=== PATIENT | female | born 1990 | race Caucasian/White ===

== ENCOUNTER 2017-10-18 10:31 | Emergency (ER) | payer SELFPAY ==
[2017-10-18] MEDS ORDERED: ACETAMINOPHEN 325 MG TABLET PO ONE (11:30)
--- NOTE | 2017-10-18 11:31 | ER Document Report ---
ED GI/ - General Chief Complaint: Abdominal Cramping Stated Complaint: ABDOMINAL PAIN Time Seen by Provider: 10/18/17 11:29 Mode of Arrival: Ambulatory Information source: Patient Notes: Patient presents complaining of right lower pelvic pain that started 4 days ago. Patient denies any fever, nausea, vomiting or diarrhea. Patient denies any vaginal bleeding or discharge. Patient denies any urinary symptoms. TRAVEL OUTSIDE OF THE [place] IN LAST 30 DAYS: No - HPI Patient complains to provider of: Pelvic pain Onset: Other - 4 days Timing/Duration: Persistent Quality of pain: Achy Pain Level: 4 Location: Suprapubic, Pelvis - Right lower pelvic Vaginal bleeding (Compared to normal period): None Sexual history: Active Associated symptoms: denies: Diarrhea, Dysuria, Fever, Nausea, Urinary hesitancy , Urinary frequency, Urinary retention, Urinary urgency, Vaginal discharge, Vomiting Exacerbated by: Denies Relieved by: Denies Similar symptoms previously: No Recently seen / treated by doctor: No - Related Data Allergies/Adverse Reactions: iron Allergy (Verified 10/18/17 10:33) swelling Past Medical History - General Information source: Patient - Social History Smoking Status: Never Smoker Chew tobacco use (# tins/day): No Frequency of alcohol use: None Drug Abuse: None Occupation: [employer] Lives with: Family Family History: Reviewed & Not Pertinent Patient has suicidal ideation: No Patient has homicidal ideation: No - Medical History Medical History: Negative Renal/ Medical History: Denies: Hx Peritoneal Dialysis Past Surgical History: Reports: Hx Tubal Ligation Review of Systems - Review of Systems Constitutional: No symptoms reported. denies: Fever, Recent illness EENT: No symptoms reported Cardiovascular: No symptoms reported. denies: Chest pain Respiratory: No symptoms reported. denies: Cough, Short of breath Gastrointestinal: Abdominal pain. denies: Diarrhea, Nausea, Vomiting Genitourinary: No symptoms reported. denies: Dysuria, Flank pain Female Genitourinary: No symptoms reported. denies: , Vaginal discharge , Vaginal bleeding Musculoskeletal: No symptoms reported. denies: Back pain Skin: No symptoms reported Hematologic/Lymphatic: No symptoms reported Neurological/Psychological: No symptoms reported Physical Exam - Vital signs Vitals: Temp Pulse Resp BP Pulse Ox 98.6 F 70 18 104/69 98 10/18/17 10:45 10/18/17 10:45 10/18/17 10:45 10/18/17 10:45 10/18/17 10:45 - General General appearance: Appears well, Alert In distress: None - Respiratory Respiratory status: No respiratory distress Chest status: Nontender Breath sounds: Normal. No: Rales, Rhonchi, Stridor, Wheezing Chest palpation: Normal - Cardiovascular Rhythm: Regular Heart sounds: S1 appreciated, S2 appreciated Murmur: No - Abdominal Inspection: Normal Distension: No distension Tenderness: Tender - R lower pelvic Organomegaly: No organomegaly - Back Back: Normal, Nontender. No: CVA tenderness - Extremities General upper extremity: Normal inspection, Normal strength General lower extremity: Normal inspection, Normal strength - Neurological Neuro grossly intact: Yes Cognition: Normal [place] Coma Scale Eye Opening: Spontaneous [place] Coma Scale Verbal: Oriented [place] Coma Scale Motor: Obeys Commands [place] Coma Scale Total: 15 - Psychological Associated symptoms: Normal affect, Normal mood - Skin Skin Temperature: Warm Skin Moisture: Dry Skin Color: Normal Course - Re-evaluation Re-evalutation: 10/18/17 13:09 Patient continues with right lower pelvic tenderness. Still awaiting labs drawn at this time. 10/18/17 14:38 Patient continues with right lower quadrant/suprapubic pelvic pain. Patient awaiting CT scan 10/18/17 17:25 Patient with lower pelvic, suprapubic tenderness. No McBurney point tenderness. Patient without any fever or leukocytosis. No concern for appendicitis, TOA or ovarian torsion at this time. Patient given good return precautions at this time. Patient presents with abdominal pain without signs of peritonitis or other life-threatening or serious etiology. Patient appears stable for discharge and has been instructed to return immediately if the symptoms worsen in any way, or in 8-12 hours if not improved for reevaluation. The patient has been instructed to return if the symptoms worsen or change in any way. Consulted with Dr. Wood who agrees with this discharge plan of care. - Vital Signs Vital signs: Temp Pulse Resp BP Pulse Ox 98.0 F 72 18 108/62 98 10/18/17 17:43 10/18/17 17:43 10/18/17 17:43 10/18/17 17:43 10/18/17 17:43 - Laboratory Result Diagrams: 10/18/17 14:10 02/05/18 16:00 Laboratory results interpreted by me: 10/18/17 10/18/17 10/18/17 12:00 14:10 16:00 MCV 73 L MCH 24.6 L RDW 15.8 H Chloride 109 H Glucose 70 L Ur Leukocyte Esterase MODERATE H Labs- Entire Visit 10/18/17 10/18/17 10/18/17 12:00 12:00 12:00 WBC RBC Hgb Hct MCV MCH MCHC RDW Plt Count Seg Neutrophils % Lymphocytes % Monocytes % Eosinophils % Basophils % Absolute Neutrophils Absolute Lymphocytes Absolute Monocytes Absolute Eosinophils Absolute Basophils Sodium Potassium Chloride Carbon Dioxide Anion Gap BUN Creatinine Est GFR ( Amer) Est GFR (Non-Af Amer) Glucose Calcium Total Bilirubin Direct Bilirubin Neonat Total Bilirubin Neonat Direct Bilirubin Neonat Indirect Bili AST ALT Alkaline Phosphatase Total Protein Albumin Urine Color YELLOW Urine Appearance SLIGHTLY-CLOUDY Urine pH 5.0 Ur Specific [place] 1.026 Urine Protein NEGATIVE Urine Glucose (UA) NEGATIVE Urine Ketones NEGATIVE Urine Blood NEGATIVE Urine Nitrite NEGATIVE Urine Bilirubin NEGATIVE Urine Urobilinogen NEGATIVE Ur Leukocyte Esterase MODERATE H Urine WBC (Auto) 10 Urine RBC (Auto) 1 Urine Bacteria (Auto) TRACE Squamous Epi Cells Auto 5 Urine Mucus (Auto) FEW Urine Ascorbic Acid NEGATIVE Urine HCG, Qual NEGATIVE Chlamydia DNA (PCR) NOT DETECTED N.gonorrhoeae DNA (PCR) NOT DETECTED 10/18/17 10/18/17 10/18/17 14:10 14:10 16:00 WBC 8.4 RBC 4.98 Hgb 12.3 Hct 36.2 MCV 73 L MCH 24.6 L MCHC 33.8 RDW 15.8 H Plt Count 334 Seg Neutrophils % 69.1 Lymphocytes % 22.1 Monocytes % 6.7 Eosinophils % 1.4 Basophils % 0.7 Absolute Neutrophils 5.8 Absolute Lymphocytes 1.9 Absolute Monocytes 0.6 Absolute Eosinophils 0.1 Absolute Basophils 0.1 Sodium Cancelled 139.8 Potassium Cancelled 4.2 Chloride Cancelled 109 H Carbon Dioxide Cancelled 24 Anion Gap Cancelled 7 BUN Cancelled 17 Creatinine Cancelled 0.63 Est GFR ( Amer) Cancelled > 60 Est GFR (Non-Af Amer) Cancelled > 60 Glucose Cancelled 70 L Calcium Cancelled 9.1 Total Bilirubin Cancelled 0.6 Direct Bilirubin Cancelled 0.4 Neonat Total Bilirubin Cancelled Not Reportable Neonat Direct Bilirubin Cancelled Not Reportable Neonat Indirect Bili Cancelled Not Reportable AST Cancelled 16 ALT Cancelled 24 Alkaline Phosphatase Cancelled 42 Total Protein Cancelled 6.5 Albumin Cancelled 3.8 Urine Color Urine Appearance Urine pH Ur Specific [place] Urine Protein Urine Glucose (UA) Urine Ketones Urine Blood Urine Nitrite Urine Bilirubin Urine Urobilinogen Ur Leukocyte Esterase Urine WBC (Auto) Urine RBC (Auto) Urine Bacteria (Auto) Squamous Epi Cells Auto Urine Mucus (Auto) Urine Ascorbic Acid Urine HCG, Qual Chlamydia DNA (PCR) N.gonorrhoeae DNA (PCR) - Diagnostic Test Radiology reviewed: Reports reviewed Discharge - Discharge Clinical Impression: Abdominal pain Qualifiers: Abdominal location: right lower quadrant Qualified Code(s): R10.31 - Right lower quadrant pain UTI (urinary tract infection) Qualifiers: Urinary tract infection type: site unspecified Hematuria presence: without hematuria Qualified Code(s): N39.0 - Urinary tract infection, site not specified Condition: Stable Disposition: HOME, SELF-CARE Instructions: Abdominal Pain ([facility]), Observation for Appendicitis ([facility]), Urinary Tract Infection ([facility]) Additional Instructions: Return immediately for any new or worsening symptoms Followup with your primary care provider, call tomorrow to make a followup appointment Return tomorrow for repeat abdominal examination if your pain is not improved. Prescriptions: Cephalexin Monohydrate [Keflex 500 mg Capsule] 500 mg PO Q6H 5 Days capsule Ibuprofen [Motrin 600 Mg Tablet] 600 mg PO Q6H PRN #20 tablet PRN Reason: for pain Forms: Return to Work Referrals: [facility] [Provider Group] - Follow up as needed [facility] [Provider Group] - Follow up as needed
[2017-10-18 12:40] LABS: APPEARANCE,URINE SLIGHTLY-CLOUDY; BILIRUBIN,URINE NEGATIVE (NEGATIVE); COLOR,URINE YELLOW; GLUCOSE, URINE NEGATIVE (NEGATIVE); KETONES,URINE NEGATIVE (NEGATIVE); LEUKOCYTE ESTERASE,URINE MODERATE (NEGATIVE); NITRITE,URINE NEGATIVE (NEGATIVE); PROTEIN,URINE NEGATIVE (NEGATIVE); URINE SPECIFIC GRAVITY 1.026; UROBILINOGEN,URINE NEGATIVE mg/dL (<2.0)
--- NOTE | 2017-10-18 12:40 | RADIOLOGY REPORT (SQ) ---
EXAM DESCRIPTION: U/S NON OB PEL TV W/DOPPLER COMPLETED DATE/TIME: 10/18/2017 12:25 pm REASON FOR STUDY: RLQ pain COMPARISON: None. TECHNIQUE: Dynamic and static grayscale images acquired of the pelvis via transvaginal approach and recorded on PACS. Additional selected color Doppler and spectral images recorded. LIMITATIONS: None. FINDINGS: UTERUS: Contour normal. No mass. Uterus is 8.4 x 6 x 5 cm in size ENDOMETRIAL STRIPE: No focal or generalized thickening. No masses. Endometrium 14 mm in thickness CERVIX: No nabothian cysts. 2 cm in length, closed. RIGHT OVARY: No abnormal masses. Right ovary 2.8 x 1.6 x 1.6 cm in size RIGHT OVARY DOPPLER: Normal arterial vascular flow without evidence for torsion. LEFT OVARY: No abnormal masses. Left ovary 2.9 x 2.3 x 1.8 cm in size LEFT OVARY DOPPLER: Normal arterial vascular flow without evidence for torsion. FREE FLUID: None noted. OTHER: No other significant finding. IMPRESSION: NORMAL TRANSVAGINAL PELVIC ULTRASOUND. TECHNICAL DOCUMENTATION: JOB ID: [id number]- All Rights Reserved
[2017-10-18 14:29] LABS: ABSOLUTE BASOPHILS # (AUTO) 0.1 10^3/uL (0.0-0.2); ABSOLUTE EOSINOPHILS # (AUTO) 0.1 10^3/uL (0.0-0.6); ABSOLUTE LYMPHOCYTES (AUTO) 1.9 10^3/uL (0.5-4.7); ABSOLUTE MONOCYTES (AUTO) 0.6 10^3/uL (0.1-1.4); ABSOLUTE NEUT (AUTO) 5.8 10^3/uL (1.7-8.2); BASOPHILS % (AUTO) 0.7 % (0-2); EOSINOPHILS % (AUTO) 1.4 % (0-6); HEMATOCRIT 36.2 % (36.0-47.0); HEMOGLOBIN 12.3 g/dL (12.0-15.5); LYMPHOCYTES % (AUTO) 22.1 % (13-45); MEAN CORPUSCULAR HEMOGLOBIN 24.6 pg (27.0-33.4); MEAN CORPUSCULAR HGB CONC 33.8 g/dL (32.0-36.0); MEAN CORPUSCULAR VOLUME 73 fl (80-97); MONOCYTES % (AUTO) 6.7 % (3-13); PLATELET COUNT 334 10^3/uL (150-450); RED BLOOD COUNT 4.98 10^6/uL (3.72-5.28); RED CELL DISTRIBUTION WIDTH 15.8 % (11.5-14.0); SEGMENTED NEUTROPHILS % (AUTO) 69.1 % (42-78); TOTAL CELLS COUNTED % (AUTO) 100 %; WHITE BLOOD COUNT 8.4 10^3/uL (4.0-10.5)
[2017-10-18] MEDS ORDERED: NORMAL SALINE 1000 ML 1,000 ML IV ONE (14:37)
[2017-10-18] MEDS ORDERED: KETOROLAC TROMETHAMINE INJ/PF 30 MG/1 ML SDV IV ONE (14:37)
--- NOTE | 2017-10-18 15:57 | RADIOLOGY REPORT (SQ) ---
EXAM DESCRIPTION: CT ABD/PELVIS WITH IV ONLY COMPLETED DATE/TIME: 10/18/2017 3:38 pm REASON FOR STUDY: RLQ pain HCG negative. COMPARISON: None. TECHNIQUE: CT scan of the abdomen and pelvis performed using helical scanning technique with dynamic intravenous contrast injection. No oral contrast. Images reviewed with lung, soft tissue, and bone windows. Reconstructed coronal and sagittal MPR images reviewed. Delayed images for evaluation of the urinary system also acquired. All images stored on PACS. All CT scanners at this facility use dose modulation, iterative reconstruction, and/or weight based d osing when appropriate to reduce radiation dose to as low as reasonably achievable (ALARA). [facility]: Dose Right [facility]: CareDose [facility]: Dose Right [facility]: Teradose 4D [facility]: LiveWire Tax CONTRAST TYPE AND DOSE: contrast/concentration: Isovue 370.00 mg/ml; Total Contrast Delivered: 90.0 ml; Total Saline Delivered: 70.0 ml 90 mL Isovue 370 intravenously RENAL FUNCTION: Not required for younger patients. RADIATION DOSE: CT Rad equipment meets quality standard of care and radiation dose reduction techniq ues were employed. CTDIvol: 11.0 - 15.0 mGy. DLP: 1376 mGy-cm.. LIMITATIONS: None. FINDINGS: LOWER CHEST: No significant findings. No nodules or infiltrates. LIVER: Normal size. No masses. No dilated ducts. SPLEEN: Normal size. No focal lesions. PANCREAS: No masses. No significant calcifications. No adjacent inflammation or peripancreatic fluid collections. Pancreatic duct not dilated. GALLBLADDER: No identified stones by CT criteria. No inflammatory changes to suggest cholecystitis. ADRENAL GLANDS: No significant masses or asymmetry. RIGHT KIDNEY AND URETER: No solid masses. No significant calcifications. No hydronephrosis or hyd roureter. LEFT KIDNEY AND URETER: No solid masses. No significant calcifications. No hydronephrosis or hydr oureter. AORTA AND VESSELS: No AAA. RETROPERITONEUM: No retroperitoneal adenopathy, hemorrhage or masses. BOWEL AND PERITONEAL CAVITY: No masses or inflammatory changes. No free fluid or peritoneal masses. APPENDIX: Normal appearing appendix. Correlate clinically. PELVIS: No mass. No free fluid. Normal bladder. ABDOMINAL WALL: No masses. No hernias. BONES: No significant or acute findings. OTHER: No other significant finding. IMPRESSION: NO SIGNIFICANT OR ACUTE FINDING IN THE ABDOMEN OR PELVIS ON CT SCAN WITH IV CONTRAST. TECHNICAL DOCUMENTATION: JOB ID: [id number] Quality ID # [id number]: Final reports with documentation of one or more dose reduction techniques (e.g., Au tomated exposure control, adjustment of the mA and/or kV according to patient size, use of iterative reconstruction technique) 2010 [employer]- All Rights Reserved
[2017-10-18 16:25] LABS: CHLAM PCR NOT DETECTED (NOT DETECT); GON PCR NOT DETECTED (NOT DETECT)
[2017-10-18 16:34] LABS: ALANINE AMINOTRANSFERASE 24 U/L (9-52); ALBUMIN 3.8 g/dL (3.5-5.0); ALKALINE PHOSPHATASE 42 U/L (38-126); ANION GAP 7 (5-19); ASPARTATE AMINO TRANSFERASE 16 U/L (14-36); BILIRUBIN,DIRECT 0.4 mg/dL (0.0-0.4); BILIRUBIN,TOTAL 0.6 mg/dL (0.2-1.3); BLOOD UREA NITROGEN 17 mg/dL (7-20); CALCIUM 9.1 mg/dL (8.4-10.2); CARBON DIOXIDE 24 mmol/L (22-30); CHLORIDE 109 mmol/L (98-107); GLUCOSE 70 mg/dL (75-110); POTASSIUM 4.2 mmol/L (3.6-5.0); SODIUM 139.8 mmol/L (137-145); TOTAL PROTEIN 6.5 g/dL (6.3-8.2)
[2017-10-18] MEDS ORDERED: CEPHALEXIN 500 MG CAPSULE PO ONE (17:28)
[2017-10-18 17:43] VITALS: BP 108/62
== END 2017-10-18 17:43 | disposition home or self-care (01) ==
LOC: ER 10:31
DX: N39.0 Urinary tract infection, site not specified (principal); R10.31 Right lower quadrant pain; Z98.51 Tubal ligation status
CPT/HCPCS: 99284; 96361; 96374; 36415; 85025; 81025; 80053; 81001; 87491; 87591; 76830; 93976; 74177; J1885; J7030

== ENCOUNTER 2017-10-21 17:04 | Emergency (ER) | payer SELFPAY ==
--- NOTE | 2017-10-21 17:41 | ER Document Report ---
ED Medical Screen (RME) - General Chief Complaint: Abdominal Pain Stated Complaint: ABDOMINAL PAIN Time Seen by Provider: 10/21/17 17:32 Mode of Arrival: Ambulatory Information source: Patient Notes: 27-year-old female presents with complaints of worsening right lower quadrant pain. Patient notes she was seen here [address] lab work at that time was benign, patient notes pain has worsened feels like something is exploding in her right lower quadrant I have greeted and performed a rapid initial assessment of this patient. A comprehensive ED assessment and evaluation of the patient, analysis of test results and completion of the medical decision making process will be conducted by additional ED providers. PHYSICAL EXAMINATION: GENERAL: Well-appearing, well-nourished and in no acute distress. HEAD: Atraumatic, normocephalic. EYES: Pupils equal round extraocular movements intact, conjunctiva are normal. ENT: Nares patent NECK: Normal range of motion LUNGS: No respiratory distress Musculoskeletal: Normal range of motion NEUROLOGICAL: Normal speech, normal gait. PSYCH: Normal mood, normal affect. SKIN: Warm, Dry, normal turgor, no rashes or lesions noted. TRAVEL OUTSIDE OF THE [place] IN LAST 30 DAYS: No - Related Data Allergies/Adverse Reactions: iron Allergy (Verified 10/21/17 17:10) swelling Past Medical History - Social History Chew tobacco use (# tins/day): No Frequency of alcohol use: None Drug Abuse: None Renal/ Medical History: Denies: Hx Peritoneal Dialysis Past Surgical History: Reports: Hx Tubal Ligation Physical Exam - Vital signs Vitals: Temp Pulse Resp BP Pulse Ox 97.8 F 74 18 125/69 99 10/21/17 17:12 10/21/17 17:12 10/21/17 17:12 10/21/17 17:12 10/21/17 17:12 Course - Vital Signs Vital signs: Temp Pulse Resp BP Pulse Ox 97.8 F 74 18 125/69 99 10/21/17 17:12 10/21/17 17:12 10/21/17 17:12 10/21/17 17:12 10/21/17 17:12
[2017-10-21 19:03] LABS: APPEARANCE,URINE CLEAR; BILIRUBIN,URINE NEGATIVE (NEGATIVE); COLOR,URINE YELLOW; GLUCOSE, URINE NEGATIVE (NEGATIVE); KETONES,URINE NEGATIVE (NEGATIVE); LEUKOCYTE ESTERASE,URINE NEGATIVE (NEGATIVE); NITRITE,URINE NEGATIVE (NEGATIVE); PROTEIN,URINE NEGATIVE (NEGATIVE); UROBILINOGEN,URINE NEGATIVE mg/dL (<2.0)
[2017-10-21 19:52] LABS: ABSOLUTE EOSINOPHILS # (AUTO) 0.2 10^3/uL (0.0-0.6); ABSOLUTE LYMPHOCYTES (AUTO) 2.4 10^3/uL (0.5-4.7); ABSOLUTE MONOCYTES (AUTO) 0.6 10^3/uL (0.1-1.4); ABSOLUTE NEUT (AUTO) 7.8 10^3/uL (1.7-8.2); BASOPHILS % (AUTO) 0.4 % (0-2); EOSINOPHILS % (AUTO) 1.6 % (0-6); HEMATOCRIT 37.1 % (36.0-47.0); HEMOGLOBIN 12.2 g/dL (12.0-15.5); LYMPHOCYTES % (AUTO) 21.9 % (13-45); MEAN CORPUSCULAR HGB CONC 32.9 g/dL (32.0-36.0); MEAN CORPUSCULAR VOLUME 73 fl (80-97); MONOCYTES % (AUTO) 5.4 % (3-13); PLATELET COUNT 343 10^3/uL (150-450); RED BLOOD COUNT 5.08 10^6/uL (3.72-5.28); RED CELL DISTRIBUTION WIDTH 15.8 % (11.5-14.0); SEGMENTED NEUTROPHILS % (AUTO) 70.7 % (42-78); TOTAL CELLS COUNTED % (AUTO) 100 %; WHITE BLOOD COUNT 11.1 10^3/uL (4.0-10.5)
[2017-10-21 20:59] LABS: ALANINE AMINOTRANSFERASE 22 U/L (9-52); ALBUMIN 4.7 g/dL (3.5-5.0); ALKALINE PHOSPHATASE 50 U/L (38-126); ANION GAP 10 (5-19); ASPARTATE AMINO TRANSFERASE 18 U/L (14-36); BILIRUBIN,TOTAL 0.6 mg/dL (0.2-1.3); BLOOD UREA NITROGEN 7 mg/dL (7-20); CALCIUM 9.8 mg/dL (8.4-10.2); CARBON DIOXIDE 26 mmol/L (22-30); CHLORIDE 105 mmol/L (98-107); GLUCOSE 85 mg/dL (75-110); POTASSIUM 3.8 mmol/L (3.6-5.0); SODIUM 140.8 mmol/L (137-145); TOTAL PROTEIN 7.1 g/dL (6.3-8.2)
--- NOTE | 2017-10-21 21:06 | RADIOLOGY REPORT (SQ) ---
EXAM DESCRIPTION: CT ABD/PELVIS WITH IV ORAL COMPLETED DATE/TIME: 10/21/2017 8:53 pm REASON FOR STUDY: RLQ pain, recent imaging COMPARISON: 10/18/2017 TECHNIQUE: CT scan of the abdomen and pelvis performed using helical scanning technique with dynamic intravenous contrast injection. No oral contrast. Images reviewed with lung, soft tissue, and bone windows. Reconstructed coronal and sagittal MPR images reviewed. Delayed images for evaluation of the urinary system also acquired. All images stored on PACS. All CT scanners at this facility use dose modulation, iterative reconstruction, and/or weight based d osing when appropriate to reduce radiation dose to as low as reasonably achievable (ALARA). [facility]: Dose Right [facility]: CareDose [facility]: Dose Right [facility]: Teradose 4D [facility]: JoggleBug CONTRAST TYPE AND DOSE: contrast/concentration: Isovue 370.00 mg/ml; Total Contrast Delivered: 92.0 ml; Total Saline Delivered: 35.0 ml RENAL FUNCTION: None required. The patient is less than 50 years old. RADIATION DOSE: CT Rad equipment meets quality standard of care and radiation dose reduction techniq ues were employed. CTDIvol: 11.2 - 15.4 mGy. DLP: 1384 mGy-cm.. LIMITATIONS: None. FINDINGS: LOWER CHEST: No significant findings. No nodules or infiltrates. LIVER: Normal size. No masses. No dilated ducts. SPLEEN: Normal size. No focal lesions. PANCREAS: No masses. No significant calcifications. No adjacent inflammation or peripancreatic fluid collections. Pancreatic duct not dilated. GALLBLADDER: No identified stones by CT criteria. No inflammatory changes to suggest cholecystitis. ADRENAL GLANDS: No significant masses or asymmetry. RIGHT KIDNEY AND URETER: No solid masses. No significant calcifications. No hydronephrosis or hyd roureter. LEFT KIDNEY AND URETER: No solid masses. No significant calcifications. No hydronephrosis or hydr oureter. AORTA AND VESSELS: No aneurysm. No dissection. Renal arteries, SMA, celiac without stenosis. RETROPERITONEUM: No retroperitoneal adenopathy, hemorrhage or masses. BOWEL AND PERITONEAL CAVITY: No masses or inflammatory changes. No free fluid or peritoneal masses. APPENDIX: Normal. PELVIS: No mass. No free fluid. Normal bladder. ABDOMINAL WALL: No masses. No hernias. BONES: No significant or acute findings. OTHER: No other significant finding. IMPRESSION: NO SIGNIFICANT OR ACUTE FINDING IN THE ABDOMEN OR PELVIS ON CT SCAN WITH IV CONTRAST. TECHNICAL DOCUMENTATION: JOB ID: [id number] Quality ID # [id number]: Final reports with documentation of one or more dose reduction techniques (e.g., Au tomated exposure control, adjustment of the mA and/or kV according to patient size, use of iterative reconstruction technique) 2010 [employer]- All Rights Reserved
--- NOTE | 2017-10-21 21:55 | ER Document Report ---
ED General - General Chief Complaint: Abdominal Pain Stated Complaint: ABDOMINAL PAIN Time Seen by Provider: 10/21/17 17:32 Mode of Arrival: Ambulatory TRAVEL OUTSIDE OF THE [place] IN LAST 30 DAYS: No - HPI Notes: Patient is a 27-year-old female with no significant past medical history who presents to the ED complaining of continued right lower pelvic/quadrant pain 1 week. Pt has had occ nausea as well w/o vomiting. Patient states that she was evaluated 3 days ago and had an ultrasound and blood work performed as well as a urine which is relatively unremarkable for any acute pathology. Patient states that she did have continued pain so she came back to the emergency department for further evaluation. Patient states that the pain does not radiate and is worsened when she stands up and when she stretches backwards. Patient states that on occasion it feels like something is tearing in that area. She has not noticed any skin color changes. Patient still eating and drinking without any difficulties. She is urinating normally and having normal bowel movements. She has not noticed any vaginal discharge/odor/bleeding. Patient was reportedly placed on Keflex from her last visit which she continues to take currently. Patient has a surgical history of a tubal ligation. Denies any headache, fever, neck pain, URI, sore throat, chest pain, palpitations, syncope, cough, shortness of breath, wheeze, dyspnea, vomiting/diarrhea, urinary retention, dysuria, hematuria, back pain, loss of control of bowel or bladder, numbness/tingling, saddle anesthesia, muscle paralysis/weakness, or rash. - Related Data Allergies/Adverse Reactions: iron Allergy (Verified 10/21/17 17:10) swelling Past Medical History - General Information source: Patient - Social History Smoking Status: Unknown if Ever Smoked Chew tobacco use (# tins/day): No Frequency of alcohol use: None Drug Abuse: None Family History: Reviewed & Not Pertinent Patient has suicidal ideation: No Patient has homicidal ideation: No Renal/ Medical History: Denies: Hx Peritoneal Dialysis Past Surgical History: Reports: Hx Tubal Ligation Review of Systems - Review of Systems -: Yes All other systems reviewed and negative Physical Exam - Vital signs Vitals: Temp Pulse Resp BP Pulse Ox 97.8 F 74 18 125/69 99 10/21/17 17:12 10/21/17 17:12 10/21/17 17:12 10/21/17 17:12 10/21/17 17:12 - Notes Notes: PHYSICAL EXAMINATION: GENERAL: Well-appearing, well-nourished and in no acute distress. A&Ox4. Appears comfortable. HEAD: Atraumatic, normocephalic. EYES: Pupils equal round and reactive to light, extraocular movements intact, sclera anicteric, conjunctiva are normal. ENT: Nares patent and without discharge. oropharynx clear without exudates. No tonsilar hypertrophy or erythema. Moist mucous membranes. NECK: Normal range of motion, supple without lymphadenopathy LUNGS: Breath sounds clear to auscultation bilaterally and equal. No wheezes rales or rhonchi. HEART: Regular rate and rhythm without murmurs, rubs, gallops. ABDOMEN: Soft, nondistended abdomen. No guarding, no rebound. No masses appreciated. Normal bowel sounds present. No CVA tenderness bilaterally. No tenderness at McBurney point. Esteban neg. Her tenderness appears to be in the area of the rt hip flexor. Extension with palp at the hip flexor also worsens her pain. Musculoskeletal: Rt LE: FROM to passive/active. Strength 5+/5. No focal deficits. see abd exam for tenderness at rt hip flexor area. Extremities: No cyanosis, clubbing, or edema b/l. Peripheral pulses 2+. Capillary refill less than 3 seconds. NEUROLOGICAL: Cranial nerves grossly intact. Normal speech, normal gait. Normal sensory, motor exams PSYCH: Normal mood, normal affect. SKIN: Warm, Dry, normal turgor, no rashes or lesions noted. Course - Re-evaluation Re-evalutation: 10/21/17 21:58 Patient is an afebrile, well-hydrated, 27-year-old female who presents to the ED with right lower abdominal pain, I suspect that this is actually musculoskeletal at the right hip flexor based on my exam today along with her completed workup. Vitals are stable. PE is otherwise unremarkable. Patient is tolerating p.o. without any difficulties. CBC, CMP, urinalysis were unremarkable for any acute pathology. Patient had a CT scan of the abdomen and pelvis with IV contrast that was unremarkable for any acute pathology. She also had a previous workup with blood work and a transvaginal ultrasound as well as a which was unremarkable for any acute pathology 3 days ago. Low suspicion/risk for acute appendicitis, bowel obstruction, acute cholecystitis, acute cholangitis, perforated diverticulitis, incarcerated hernia , pancreatitis, perforated ulcer, peritonitis, sepsis, pelvic inflammatory disease, ectopic , tubo-ovarian abscess, ovarian torsion, or other systemic emergent condition at this time. Patient is aware that her condition can change from initial presentation and she needs to monitor symptoms closely and seek medical attention if any acute changes. Patient was given Zofran and Toradol today. Conservative measures otherwise for symptoms. Recheck with OBGYN in 3-5 days. Recheck with your PCM in 3-5 days. Consider consult with Orthopedics. Return to the ED with any worsening/concerning symptoms otherwise as reviewed in discharge. Patient is in agreement. - Vital Signs Vital signs: Temp Pulse Resp BP Pulse Ox 97.8 F 74 18 125/69 99 10/21/17 17:12 10/21/17 17:12 10/21/17 17:12 10/21/17 17:12 10/21/17 17:12 - Laboratory Result Diagrams: 10/21/17 19:35 10/21/17 20:25 Laboratory results interpreted by me: 10/21/17 19:35 WBC 11.1 H MCV 73 L MCH 24.0 L RDW 15.8 H Discharge - Discharge Clinical Impression: Pelvic pain Strain of hip flexor Qualifiers: Encounter type: initial encounter Laterality: right Qualified Code(s): S76.011A - Strain of muscle, fascia and tendon of right hip, initial encounter Condition: Stable Disposition: HOME, SELF-CARE Instructions: Muscle Strain ([facility]), Abdominal Pain ([facility]), Observation for Appendicitis ([facility]) Additional Instructions: Rest, Ice, Compression, Elevation Light stretches daily Strength exercises as able Moist heat and massage may help F/u with your PCP in 3-5 days for a recheck Consider consult(s) with Orthopedics/physical therapy for ongoing/worsening symptoms Return to the ED with any worsening symptoms and/or development of fever, headache, chest pain, palpitations, syncope, shortness of breath, trouble breathing, abdominal pain, n/v/d, muscle weakness/paralysis, numbness/tingling, swelling, redness, or other worsening symptoms that are concerning to you. Referrals: [facility] [Provider Group] - Follow up in 3-5 days [facility] [Provider Group] - Follow up in 3-5 days
[2017-10-21] MEDS ORDERED: ONDANSETRON HCL INJ/PF 4 MG/2 ML SDV IV ONE (22:02)
[2017-10-21] MEDS ORDERED: KETOROLAC TROMETHAMINE INJ/PF 30 MG/1 ML SDV IV ONE (22:02)
[2017-10-21 22:46] VITALS: BP 121/74
== END 2017-10-21 22:45 | disposition home or self-care (01) ==
LOC: ER 17:04
DX: R10.2 Pelvic and perineal pain (principal); S76.011A Strain of muscle, fascia and tendon of right hip, initial encounter; X58.XXXA Exposure to other specified factors, initial encounter; R11.2 Nausea with vomiting, unspecified; Z98.51 Tubal ligation status
CPT/HCPCS: 99284; 96374; 96375; 36415; 85025; 80053; 81001; 74177; J1885; J2405